=== PATIENT | male | born 2000 | race Asian ===

== ENCOUNTER 2018-04-24 12:30 | Day surgery (SDC) | payer OTHER ==
[~2018-04-24 12:30] MED LIST: Buffered Lidocaine 0.9% SYRIN* 5 ML/SYR SYRINGE INTRADERM ONE; Dexamethasone TAB* 4 MG PO ONE; DiMENhydriNATE IV* 50 MG/ML VIAL IV PUSH PRN; Famotidine IV* 10 MG/ML 2 ML (20 mg) IV ONE; Morphine VIAL* 4 MG/ML VIAL (1 ml vial) IV PRN; Naloxone* 0.4 MG/ML 1 ML VIAL IV PRN; Ondansetron TAB* 4 MG PO ONE; PROCHLORPERAZINE INJ 5 MG/ML 2 ML VIAL IV PRN; Scopolamine 1.5 mg* PATCH TRANSDERM PRN; fentaNYL* 50 MCG/ML 2 ML VIAL (100 MCG VIAL) IV PRN; oxyCODONE/Acetamin 5/325 MG* TAB PO PRN
[2018-04-24] MEDS ORDERED: fentaNYL* 50 MCG/ML 2 ML VIAL (100 MCG VIAL) ONE (12:39)
[2018-04-24] MEDS ORDERED: Midazolam* 1 MG/ML 5 ML VIAL (5 MG) ONE (12:40)
[2018-04-24] MEDS ORDERED: KETAMINE HCL* 50 MG/ML 10 ML VIAL ONE (12:40)
[2018-04-24] MEDS ORDERED: Ondansetron ODT TAB* 4 MG ONE (12:56)
[2018-04-24] MEDS ORDERED: Famotidine IV* 10 MG/ML 2 ML (20 mg) ONE (12:56)
[2018-04-24] MEDS ORDERED: Dexamethasone TAB* 4 MG ONE (12:57)
[2018-04-24] MEDS ORDERED: ceFAZolin 2 GM PREMIX in ORs 2 GM/50 ML BAG IVPB ONE (12:57)
[2018-04-24] MEDS ORDERED: Bupivacaine 0.25% EPI 200,000* 30 ML SDV ONE (13:36)
[2018-04-24] MEDS ORDERED: EPINEPHRINE 1 MG/ML 1 ML VIAL ONE (13:36)
[2018-04-24] MEDS ORDERED: Propofol* 10 MG/ML 20 ML BTL IV PUSH ONE (14:44)
[2018-04-24] MEDS ORDERED: Lidocaine 2% PF * 5 ML VIAL ONE (14:44)
[2018-04-24] MEDS ORDERED: Ketorolac INJ* 30 MG/ML 1 ML VIAL ONE (14:44)
[2018-04-24] MEDS ORDERED: oxyCODONE/Acetamin 5/325 MG* TAB ONE (15:27)
[2018-04-24 16:22] VITALS: BP 145/90
--- NOTE | 2018-04-26 10:34 | OP ---
OPERATIVE NOTE: DATE OF OPERATION: 04/24/18 DATE OF : 89 SURGEON: Bhupinder Goodman MD FIBER DESIGN ENGINEER: ALBERT Abebe A physician management assistant was required for the length of the procedure for assistance with positioning, k nee manipulation, and closure. ANESTHESIOLOGIST: Dr. Agusto Rodriguez. ANESTHESIA: General anesthesia. PRE-OP DIAGNOSIS: Left knee lateral meniscus tear. POST-OP DIAGNOSIS: Left knee lateral meniscus tear. OPERATIVE PROCEDURE: 1. Left knee arthroscopic partial lateral meniscectomy. 2. Left knee arthroscopic partial synovectomy. 3. Left knee arthroscopic careful examination of medial meniscus. TOURNIQUET TIME: 30 minutes at 300 mmHg. [id number] TIME: 28 minutes. ARTHROSCOPY FLUID UTILIZED: Not recorded. ANTIBIOTICS: Ancef 2 g IV. IV FLUIDS: 1000 cc crystalloid. COMPLICATIONS: None. IMPLANTS: None. SPECIMEN: None. ESTIMATED BLOOD LOSS: Zero cc. INDICATIONS FOR PROCEDURE: The patient is a 17-year-old man, sophomore at [employer] who inj ured his left knee on 03/18/18 while playing flag football, when he twisted his knee. The patient had some limitation of knee extension. He had an MRI which showed a lateral meniscus tea r, radial tear in the body of the lateral meniscus. I discussed nonoperative and operative treatment options with the patient, remotely, by video phone c hat, with his parents. They opted for surgical management. I discussed risks and potential complications of surgery with the patient and family. DESCRIPTION OF PROCEDURE: In preoperative holding, the patient signed a written consent. Operative extremity was marked in preoperative holding. The patient was taken back to the operating room and p laced supine on the operating room table. The patient was sedated and general anesthesia was induced. The left proximal thigh was placed in a tourniquet. The left distal thigh was placed in a thigh ho lder. The table was elevated and the foot of the table was dropped. The left lower extremity was prepped and then draped. Surgical time-out was performed. Esmarch was applied and the tourniquet was elevated to 300 mmHg. I established an anterolateral knee arthroscopy portal using standard technique. I commenced a diagn ostic arthroscopy. There was incomplete visualization of the patellofemoral compartment because of a nterior synovitis. No articular cartilage damage. I dropped down to the medial compartment. No clear articular cartilage damage. There was a point in the posterior body of the medial meniscus that had appeared as though there was a superior tear about the peripheral meniscus. I decided that I would definitely investigate this more closely as I was c oncerned about a peripheral or meniscocapsular junction tear. The patient's ACL and PCL were intact in the notch. There was some ligamentum mucosum and synovitis anteriorly. I moved to the lateral compartment where there was no articular cartilage injury. There was; however, a radial or oblique radial tear in the body of the lateral meniscus. I was happy to see that this w as not full thickness. It was perhaps half of the thickness of the meniscus. I next returned to the medial compartment. I made an anterior medial knee arthroscopy portal to inst rument in the medial compartment. I next debrided some anterior synovitis in the ligamentum mucosum. I then moved to closely visualize the medial meniscus. I used an arthroscopic probe and viewed the medial meniscus from anteromedial and anterolateral. It turned out that there was no tear whatsoever. There was a slight change in th e appearance of the medial meniscus as it transitioned from a point where it was confluent with the M CL to a point in the peripheral medial meniscus posterior to the MCL. Both visibly and to probing wi th the arthroscopic probe, there was no tear. I returned to the lateral compartment. I visualized from anterolateral and placed a new anteromedial knee arthroscopy portal under direct vi sualization. I debrided the meniscus tear using an arthroscopic shaver and an arthroscopic biter. A fter I had initially completed some debridement, I thought that was sufficient. The superior surface looked totally stable and was stable to my probing. However, the inferior surface surprisingly had a parrot beak tear that was anchored posteriorly. It took some work to deliver the anterior most par t of that parrot beak tear into the lateral compartment and then I debrided that with an arthroscopic biter and arthroscopic shaver. I then confirmed no more tearing and the stability of the meniscal r im with visualization through both anteromedial and anterolateral portals and probing. I was happy wi th the result. Still plenty of the meniscus remaining for good function. I removed fluid and instruments from knee. I closed the skin incision sites with [id number] and 12 stitches using nylon 3-0 suture. Xeroform, 4x4's, ABD. Sterile Webril. Lion bandage from foot to proximal thigh. Cooling unit placed. DISPOSITION: The patient will follow up with me in 10 to 14 days postoperative. Percocet for pain co ntrol, aspirin for DVT prophylaxis. The patient's parents were going to take him home to [place] over the weekend, so some additional prescriptions were provided for medications for the weekend. Th e patient will start physical therapy immediately next week. [id number]/[facility] #: [id number]
[2018-04-27] MEDS ORDERED: Scopolamine PATCH Remove* 1 NOTE MISC PATCH OFF ONE (05:46)
== END 2018-04-24 16:29 | disposition home or self-care (01) ==
LOC: OR 12:30
PROVIDERS: ATTEND Orthopaedic Surgery
DX: S83.272D Complex tear of lateral meniscus, current injury, left knee, subsequent encounter (principal); X58.XXXD Exposure to other specified factors, subsequent encounter
CPT/HCPCS: A9270-GY; J0690; J1885; J2250; J2704; J3010; J8540